=== PATIENT | male | born 1980 | race Caucasian/White ===

== ENCOUNTER 2017-02-01 12:22 | Inpatient (IN) | payer OTHER ==
[2017-02-01 13:12] VITALS: BMI 26.6
--- NOTE | 2017-02-01 14:41 | HP ---
CIWA Score - CIWA Score Nausea/Vomitin-No Nausea/No Vomiting Muscle Tremors: 4-Moderate,w/Arms Extend Anxiety: 4-Mod. Anxious/Guarded Agitation: 4-Moderately Restless Paroxysmal Sweats: 3 Orientation: 0-Oriented Tacttile Disturbances: 0-None Auditory Disturbances: 0-None Visual Disturbances: 0-None Headache: 1-Very Mild CIWA-Ar Total Score: 16 Admission ROS BHS - HPI Chief Complaint: I keep giving parole dirty urine and I need to get cleaned and get my life a chance again. Allergies/Adverse Reactions: Allergies Allergy/AdvReac Type Severity Reaction Status Date / Time No Known Allergies Allergy Verified 02/01/17 14:21 History of Present Illness: pt is a 36yr old male with a history of xanax dependence seeking detox for treatment. pt is also on a mmtp program dose of 60mg verfied however, pt missed two dosed last time dosed was wednesday. Exam Limitations: No Limitations - Ebola screening Have you traveled outside of the country in the last 21 days: No Have you had contact with anyone from an Ebola affected area: No Have you been sick,other than usual withdrawal symptoms: No Do you have a fever: No - Review of Systems Constitutional: Chills, Diaphoresis, Loss of Appetite, Night Sweats, Changes in sleep EENT: reports: Tearing Respiratory: reports: No Symptoms reported Cardiac: reports: No Symptoms Reported GI: reports: Constipated, Poor Appetite, Poor Fluid Intake : reports: No Symptoms Reported Musculoskeletal: reports: Joint Pain, Muscle Pain Integumentary: reports: Flushing, Sweating Neuro: reports: Tingling, Tremors Endocrine: reports: Excessive Sweating, Flushing, Intolerance to Cold, Intolerance to Heat Hematology: reports: No Symptoms Reported Psychiatric: reports: Judgement Intact, Mood/Affect Appropiate, Orientated x3, Agitated, Anxious Other Systems: Reviewed and Negative Patient History - Patient Medical History Hx Anemia: No Hx Asthma: Yes (as a child) Hx Chronic Obstructive Pulmonary Disease (COPD): No Hx Cancer: No Hx Cardiac Disorders: No Hx Congestive Heart Failure: No Hx Hypertension: No Hx Hypercholesterolemia: No Hx Pacemaker: No HX Cerebrovascular Accident: No Hx Seizures: No Hx Dementia: No Hx Diabetes: No Hx Gastrointestinal Disorders: No Hx Liver Disease: No Hx Genitourinary Disorders: No Hx Sexually Transmitted Disorders: No Hx Renal Disease (ESRD): No Hx Thyroid Disease: No Hx Human Immunodeficiency Virus (HIV): No (negative ) Hx Hepatitis C: No (negative) Hx Depression: No Hx Suicide Attempt: No (denies) Hx Bipolar Disorder: No Hx Schizophrenia: No - Patient Surgical History Past Surgical History: No Hx Neurologic Surgery: No Hx Cataract Extraction: No Hx Cardiac Surgery: No Hx Lung Surgery: No Hx Breast Surgery: No Hx Breast Biopsy: No Hx Abdominal Surgery: No Hx Appendectomy: No Hx Cholecystectomy: No Hx Genitourinary Surgery: No Hx Section: No Hx Orthopedic Surgery: No Anesthesia Reaction: No - PPD History Previous Implant?: Yes Documented Results: Negative w/o proof Implanted On Prior [facility] Admission?: No PPD to be Administered?: Yes - Reproductive History Patient is a Female of Child Bearing Age (11 -55 yrs old): No - Smoking Cessation Smoking history: Current every day smoker Have you smoked in the past 12 months: Yes Aproximately how many cigarettes per day: 20 Hx Chewing Tobacco Use: No Initiated information on smoking cessation: Yes 'Breaking Loose' booklet given: 02/01/17 - Substance & Tx. History Hx Alcohol Use: No Hx Substance Use: Yes Substance Use Type: Cocaine, Heroin Hx Substance Use Treatment: No - Substances Abused Crack Route: Smoking Frequency: Daily Amount used: $60 Age of first use: 32 Date of Last Use: 02/01/17 Heroin Route: Inhalation Frequency: Daily Amount used: 5 bags Age of first use: 32 Date of Last Use: 02/01/17 Xanax Route: Oral Frequency: Daily Amount used: 2 mg. Age of first use: 34 Date of Last Use: 01/31/17 Family Disease History - Family Disease History Family History: Denies Admission Physical Exam BHS - Vital Signs Vital Signs: Vital Signs - 24 hr 02/01/17 13:10 Temperature 97.3 F L Pulse Rate 98 H Respiratory 18 Rate Blood Pressure 115/76 - Physical General Appearance: Yes: Appropriately Dressed, Moderate Distress, Tremorous, Irritable, Sweating, Anxious HEENTM: Yes: Normal Voice, Nasal Congestion, Rhinorrhea Respiratory: Yes: Lungs Clear, Normal Breath Sounds, No Respiratory Distress Neck: Yes: No masses,lesions,Nodules Breast: Yes: Within Normal Limits Cardiology: Yes: Regular Rhythm, Regular Rate, S1, S2 Abdominal: Yes: Normal Bowel Sounds, Non Tender, Soft Genitourinary: Yes: Within Normal Limits Back: Yes: Normal Inspection Musculoskeletal: Yes: Back pain, Joint Stiffness, Muscle Pain Extremities: Yes: Normal Capillary Refill, Normal Inspection, Non-Tender, Tremors 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, Fully Oriented, Alert, Normal Response Integumentary: Yes: Normal Color, Diaphoresis Lymphatic: Yes: Within Normal Limits - Diagnostic (1) Sedative, hypnotic or anxiolytic dependence with withdrawal, uncomplicated Current Visit: Yes Status: Chronic (2) Cocaine dependence Current Visit: Yes Status: Chronic Qualifiers: Substance use status: uncomplicated Qualified Code(s): F14.20 - Cocaine dependence, uncomplicated; F14.20 - Cocaine dependence, uncomplicated; F14.20 - Cocaine dependence, uncomplicated (3) Methadone maintenance therapy patient Current Visit: Yes Status: Chronic Comment: pt dose verified with program last dosed on wednesday with 60mg however pt missed two doses, wed and wednesday and pt will start his methadone today with 50mg then increase till his 60mg is reached. (4) Nicotine dependence Current Visit: Yes Status: Chronic Qualifiers: Nicotine product type: cigarettes Substance use status: uncomplicated Qualified Code(s): F17.210 - Nicotine dependence, cigarettes, uncomplicated; F17.210 - Nicotine dependence, cigarettes, uncomplicated Cleared for Admission S - Detox or Rehab [facility] Level of Care: Medically Managed Detox Regimen/Protocol: Valium [facility] Breath Alcohol Content Breath Alcohol Content: 0 Urine Drug Screen - Results Drug Screen Negative: No Urine Drug Screen Results: THC-Marijuana, ADARSH-Cocaine, OPI-Opiates, BZO- Benzodiazepines, MTD-Methadone
[2017-02-01] MEDS ORDERED: NICOTINE POLACRILEX 4 MG GUM BUC PRN (14:55)
[2017-02-01] MEDS ORDERED: hydrOXYzine PAMOATE 50 MG CAPSULE (FP) PO PRN (14:55)
[2017-02-01] MEDS ORDERED: MAGNESIUM HYDROX 2400MG/30ML ORAL SUSPENSION 30 ML CUP PO PRN (14:55)
[2017-02-01] MEDS ORDERED: MENTHOL/PHENOL 1 EACH UD MM PRN (14:55)
[2017-02-01] MEDS ORDERED: LOPERAMIDE HCL 2 MG CAPSULE PO PRN (14:55)
[2017-02-01] MEDS ORDERED: MAGNESIUM CITRATE 300 ML BOTTLE PO PRN (14:55)
[2017-02-01] MEDS ORDERED: MAG HYDROX/AL HYDROX/SIMETH 30 ML UNIT-DOSE CUP PO PRN (14:55)
[2017-02-01] MEDS ORDERED: guaiFENesin/D-METHORPHAN HB 10 ML UNIT-DOSE CUPS PO PRN (14:55)
[2017-02-01] MEDS ORDERED: ACETAMINOPHEN 325 MG TABLET (FP) PO PRN (14:55)
[2017-02-01] MEDS ORDERED: P-EPHED 60MG/TRIPROLIDI 2.5MG TABLET PO PRN (14:55)
[2017-02-01] MEDS ORDERED: IBUPROFEN 400 MG TABLET (FP) PO PRN (14:55)
[2017-02-01] MEDS ORDERED: METHADONE HCL 10 MG TABLET PO ONE (14:56)
[2017-02-01] MEDS ORDERED: diazePAM 5 MG TABLET PO ONE (15:06)
[2017-02-01] MEDS ORDERED: METHADONE 40 MG, METHADONE 10 MG PO ONE (15:20)
[2017-02-01] MEDS ORDERED: METHADONE HCL 10 MG TABLET ONE (17:09)
[2017-02-01] MEDS ORDERED: METHADONE HCL 40 MG DISPERSABLE TABLET ONE (17:10)
[2017-02-01 17:16] LABS: URINE APPEARANCE CLOUDY; URINE BILIRUBIN NEGATIVE (NEGATIVE); URINE BLOOD NEGATIVE (NEGATIVE); URINE COLOR YELLOW; URINE GLUCOSE (UA) NEGATIVE (NEGATIVE); URINE KETONE NEGATIVE (NEGATIVE); URINE NITRITE NEGATIVE (NEGATIVE); URINE PROTEIN NEGATIVE (NEGATIVE)
[2017-02-01 21:23] LABS: URINE LEUK ESTERASE Negative (NEGATIVE)
[2017-02-01] MEDS: THIAMINE HCL 100 MG TABLET (FP) PO SCH (22:22)
[2017-02-01] MEDS: diazePAM 5 MG TABLET PO SCH (22:23)
[2017-02-02] MEDS ORDERED: METHADONE HCL 10 MG TABLET ONE (05:14)
[2017-02-02] MEDS ORDERED: METHADONE HCL 40 MG DISPERSABLE TABLET ONE (05:14)
[2017-02-02] MEDS ORDERED: METHADONE HCL 10 MG TABLET PO SCH (06:00)
[2017-02-02] MEDS: diazePAM 5 MG TABLET PO SCH ×3 (06:28→22:24)
[2017-02-02] MEDS: METHADONE 40 MG, METHADONE 20 MG PO SCH (06:28)
[2017-02-02] MEDS ORDERED: LIDOCAINE 5% TOPICAL PATCH TP ONE (09:47)
[2017-02-02 10:06] LABS: MCH 29.3 pg (25.7-33.7); MCHC 33.5 g/dl (32.0-35.9); MEAN CELL VOLUME 87.3 fl (80-96); PLATELET COUNT 237 K/MM3 (134-434); WHITE BLOOD COUNT 7.4 K/mm3 (4.0-10.0)
[2017-02-02 10:37] LABS: ALBUMIN 3.9 g/dl (3.4-5.0); ALK PHOS 67 U/L (45-117); ANION GAP 11 (8-16); BILIRUBIN,TOTAL 0.5 mg/dL (0.2-1.0); CALCIUM 8.8 mg/dL (8.5-10.1); CO2 27 mmol/L (21-32); GLUCOSE,RANDOM 108 mg/dL (74-106); SGOT/AST 18 U/L (15-37); SGPT/ALT 25 U/L (12-78); TOT PROT 7.1 g/dl (6.4-8.2)
[2017-02-02] MEDS: PRENATAL VITAMINS W/ FOLIC ACID TABLET (FP) PO SCH (11:00)
[2017-02-02] MEDS: CYCLOBENZAPRINE HCL 10 MG TABLET (FP) PO PRN ×2 (11:00→22:24)
[2017-02-02] MEDS: diazePAM 5 MG TABLET PO PRN ×2 (11:00→20:14)
[2017-02-02] MEDS: NICOTINE 21 MG/24 HOURS TOPICAL PATCH TD SCH (11:00)
--- NOTE | 2017-02-02 11:58 | PN ---
[facility] CIWA - CIWA Score Nausea/Vomitin-No Nausea/No Vomiting Muscle Tremors: 3 Anxiety: 3 Agitation: 2 Paroxysmal Sweats: 4-Forehead w/Sweat Beads Orientation: 2-Disoriented Date<2 days Tacttile Disturbances: 2-Mild Itch/Numbness/Burn Auditory Disturbances: 0-None Visual Disturbances: 1-Very Mild Sensitivity Headache: 0-None Present CIWA-Ar Total Score: 17 BHS Progress Note (SOAP) Subjective: Body aches, Sweating, Tremors. Objective: PT. A & O X 2 (DISORIENTED ABOUT DAY / DATE). PT. OBSERVED AMBULATING ON UNIT. NO ACUTE DISTRESS. 02/02/17 11:58 Vital Signs Temperature 97.7 F 02/02/17 07:03 Pulse Rate 60 02/02/17 07:03 Respiratory Rate 18 02/02/17 07:03 Blood Pressure 92/60 02/02/17 07:03 O2 Sat by Pulse Oximetry (%) Laboratory Tests 02/01/17 02/02/17 02/02/17 15:30 05:30 05:30 WBC 7.4 RBC 4.54 Hgb 13.3 Hct 39.6 MCV 87.3 MCH 29.3 MCHC 33.5 RDW 13.0 Plt Count 237 MPV 9.0 Sodium 143 Potassium 3.8 Chloride 105 Carbon Dioxide 27 Anion Gap 11 BUN 16 Creatinine 1.0 Creat Clearance w eGFR > 60 Random Glucose 108 H Calcium 8.8 Total Bilirubin 0.5 AST 18 ALT 25 Alkaline Phosphatase 67 Total Protein 7.1 Albumin 3.9 Urine Color Yellow Urine Appearance Cloudy Urine pH 7.0 Ur Specific [place] 1.020 Urine Protein Negative Urine Glucose (UA) Negative Urine Ketones Negative Urine Blood Negative Urine Nitrite Negative Urine Bilirubin Negative Urine Urobilinogen 2.0 Ur Leukocyte Esterase Negative LABS NOTED. RPR RESULT PENDING. 02/02/17 12:01 Assessment: 02/02/17 12:00 WITHDRAWAL SYMPTOMS. Plan: CONTINUE DETOX. INCREASE DAILY PO FLUID INTAKE. PRN FLEXERIL FOR BODY ACHES / MUSCLE SPASMS. LIDODERM PATCH FOR LOW BACK PAIN.
--- NOTE | 2017-02-02 20:31 | EKG ---
Test Reason : Blood Pressure : / mmHG Vent. Rate : 065 BPM Atrial Rate : 065 BPM P-R Int : 136 ms QRS Dur : 096 ms QT Int : 402 ms P-R-T Axes : 053 071 061 degrees QTc Int : 418 ms NORMAL SINUS RHYTHM RSR' NO PREVIOUS ECGS AVAILABLE REPEAT EKG IF CLINICALLY INDICATED Confirmed by GLADYS BALLESTEROS MD ([id number]) on 02/02/2017 8:31:35 PM Referred By: Confirmed By:GLADYS BALLESTEROS MD
[2017-02-02] MEDS: THIAMINE HCL 100 MG TABLET (FP) PO SCH (22:24)
[2017-02-02] MEDS: diphenhydrAMINE HCL 50 MG CAPSULE PO PRN (22:25)
[2017-02-02] MEDS: LIDOCAINE PATCH REMOVAL MC SCH (22:39)
[2017-02-03] MEDS ORDERED: METHADONE HCL 10 MG TABLET ONE (03:53)
[2017-02-03] MEDS ORDERED: METHADONE HCL 40 MG DISPERSABLE TABLET ONE (03:54)
[2017-02-03] MEDS: CYCLOBENZAPRINE HCL 10 MG TABLET (FP) PO PRN ×2 (05:47→22:21)
[2017-02-03] MEDS: METHADONE 40 MG, METHADONE 20 MG PO SCH (05:47)
[2017-02-03] MEDS: diazePAM 5 MG TABLET PO PRN (05:48)
[2017-02-03] MEDS: diazePAM 5 MG TABLET PO SCH ×2 (10:20→22:21)
[2017-02-03] MEDS: PRENATAL VITAMINS W/ FOLIC ACID TABLET (FP) PO SCH (10:20)
[2017-02-03] MEDS: NICOTINE 21 MG/24 HOURS TOPICAL PATCH TD SCH (10:20)
--- NOTE | 2017-02-03 10:55 | PN ---
[facility] CIWA - CIWA Score Nausea/Vomitin-No Nausea/No Vomiting Muscle Tremors: 4-Moderate,w/Arms Extend Anxiety: 4-Mod. Anxious/Guarded Agitation: 4-Moderately Restless Paroxysmal Sweats: 1-Minimal Palms Moist Orientation: 0-Oriented Tacttile Disturbances: 3-Moderate Itch/Numb/Burn Auditory Disturbances: 0-None Visual Disturbances: 0-None Headache: 0-None Present CIWA-Ar Total Score: 16 BHS Progress Note (SOAP) Subjective: ANXIETY,SWEATS,IRRITABILITY,FATIGUE. Objective: 02/03/17 10:54 Vital Signs Temperature 98.6 F 02/03/17 09:49 Pulse Rate 83 02/03/17 09:49 Respiratory Rate 18 02/03/17 09:49 Blood Pressure 123/73 02/03/17 09:49 O2 Sat by Pulse Oximetry (%) Laboratory Last Values WBC 7.4 K/mm3 (4.0-10.0) 02/02/17 05:30 RBC 4.54 M/mm3 (4.00-5.60) 02/02/17 05:30 Hgb 13.3 GM/dL (11.7-16.9) 02/02/17 05:30 Hct 39.6 % (35.4-49) 02/02/17 05:30 MCV 87.3 fl (80-96) 02/02/17 05:30 MCH 29.3 pg (25.7-33.7) 02/02/17 05:30 MCHC 33.5 g/dl (32.0-35.9) 02/02/17 05:30 RDW 13.0 % (11.9-15.9) 02/02/17 05:30 Plt Count 237 K/MM3 (134-434) 02/02/17 05:30 MPV 9.0 fl (7.5-11.1) 02/02/17 05:30 Sodium 143 mmol/L (136-145) 02/02/17 05:30 Potassium 3.8 mmol/L (3.5-5.1) 02/02/17 05:30 Chloride 105 mmol/L (98-107) 02/02/17 05:30 Carbon Dioxide 27 mmol/L (21-32) 02/02/17 05:30 Anion Gap 11 (8-16) 02/02/17 05:30 BUN 16 mg/dL (7-18) 02/02/17 05:30 Creatinine 1.0 mg/dL (0.7-1.3) 02/02/17 05:30 Creat Clearance w eGFR > 60 (>60) 02/02/17 05:30 Random Glucose 108 mg/dL (74-106) H 02/02/17 05:30 Calcium 8.8 mg/dL (8.5-10.1) 02/02/17 05:30 Total Bilirubin 0.5 mg/dL (0.2-1.0) 02/02/17 05:30 AST 18 U/L (15-37) 02/02/17 05:30 ALT 25 U/L (12-78) 02/02/17 05:30 Alkaline Phosphatase 67 U/L (45-117) 02/02/17 05:30 Total Protein 7.1 g/dl (6.4-8.2) 02/02/17 05:30 Albumin 3.9 g/dl (3.4-5.0) 02/02/17 05:30 Urine Color Yellow 02/01/17 15:30 Urine Appearance Cloudy 02/01/17 15:30 Urine pH 7.0 (5.0-8.0) 02/01/17 15:30 Ur Specific [place] 1.020 (1.005-1.025) 02/01/17 15:30 Urine Protein Negative (NEGATIVE) 02/01/17 15:30 Urine Glucose (UA) Negative (NEGATIVE) 02/01/17 15:30 Urine Ketones Negative (NEGATIVE) 02/01/17 15:30 Urine Blood Negative (NEGATIVE) 02/01/17 15:30 Urine Nitrite Negative (NEGATIVE) 02/01/17 15:30 Urine Bilirubin Negative (NEGATIVE) 02/01/17 15:30 Urine Urobilinogen 2.0 mg/dL (0.2-1.0) 02/01/17 15:30 Ur Leukocyte Esterase Negative (NEGATIVE) 02/01/17 15:30 RPR Titer Nonreactive (NONREACTIVE) 02/02/17 05:30 Assessment: 02/03/17 10:54 WITHDRAWAL SX Plan: CONTINUE DETOX
[2017-02-03] MEDS: THIAMINE HCL 100 MG TABLET (FP) PO SCH (22:21)
[2017-02-03] MEDS: LIDOCAINE PATCH REMOVAL MC SCH (22:31)
[2017-02-04] MEDS ORDERED: METHADONE HCL 40 MG DISPERSABLE TABLET ONE (04:00)
[2017-02-04] MEDS ORDERED: METHADONE HCL 10 MG TABLET ONE (04:00)
[2017-02-04] MEDS: METHADONE 40 MG, METHADONE 20 MG PO SCH (05:54)
[2017-02-04] MEDS: diazePAM 5 MG TABLET PO PRN (05:54)
[2017-02-04] MEDS: NICOTINE 21 MG/24 HOURS TOPICAL PATCH TD SCH (10:13)
[2017-02-04] MEDS: diazePAM 5 MG TABLET PO SCH ×2 (10:13→22:34)
[2017-02-04] MEDS: PRENATAL VITAMINS W/ FOLIC ACID TABLET (FP) PO SCH (10:13)
--- NOTE | 2017-02-04 10:35 | PN ---
BHS Progress Note (SOAP) Subjective: C/O MODERATE TO SEVERE LOWER BACK PAIN AND ANXIETY. Objective: 02/04/17 10:34 Vital Signs Temperature 98.9 F 02/04/17 09:16 Pulse Rate 100 H 02/04/17 09:16 Respiratory Rate 18 02/04/17 09:16 Blood Pressure 133/72 02/04/17 09:16 O2 Sat by Pulse Oximetry (%) Laboratory Last Values WBC 7.4 K/mm3 (4.0-10.0) 02/02/17 05:30 RBC 4.54 M/mm3 (4.00-5.60) 02/02/17 05:30 Hgb 13.3 GM/dL (11.7-16.9) 02/02/17 05:30 Hct 39.6 % (35.4-49) 02/02/17 05:30 MCV 87.3 fl (80-96) 02/02/17 05:30 MCH 29.3 pg (25.7-33.7) 02/02/17 05:30 MCHC 33.5 g/dl (32.0-35.9) 02/02/17 05:30 RDW 13.0 % (11.9-15.9) 02/02/17 05:30 Plt Count 237 K/MM3 (134-434) 02/02/17 05:30 MPV 9.0 fl (7.5-11.1) 02/02/17 05:30 Sodium 143 mmol/L (136-145) 02/02/17 05:30 Potassium 3.8 mmol/L (3.5-5.1) 02/02/17 05:30 Chloride 105 mmol/L (98-107) 02/02/17 05:30 Carbon Dioxide 27 mmol/L (21-32) 02/02/17 05:30 Anion Gap 11 (8-16) 02/02/17 05:30 BUN 16 mg/dL (7-18) 02/02/17 05:30 Creatinine 1.0 mg/dL (0.7-1.3) 02/02/17 05:30 Creat Clearance w eGFR > 60 (>60) 02/02/17 05:30 Random Glucose 108 mg/dL (74-106) H 02/02/17 05:30 Calcium 8.8 mg/dL (8.5-10.1) 02/02/17 05:30 Total Bilirubin 0.5 mg/dL (0.2-1.0) 02/02/17 05:30 AST 18 U/L (15-37) 02/02/17 05:30 ALT 25 U/L (12-78) 02/02/17 05:30 Alkaline Phosphatase 67 U/L (45-117) 02/02/17 05:30 Total Protein 7.1 g/dl (6.4-8.2) 02/02/17 05:30 Albumin 3.9 g/dl (3.4-5.0) 02/02/17 05:30 Urine Color Yellow 02/01/17 15:30 Urine Appearance Cloudy 02/01/17 15:30 Urine pH 7.0 (5.0-8.0) 02/01/17 15:30 Ur Specific [place] 1.020 (1.005-1.025) 02/01/17 15:30 Urine Protein Negative (NEGATIVE) 02/01/17 15:30 Urine Glucose (UA) Negative (NEGATIVE) 02/01/17 15:30 Urine Ketones Negative (NEGATIVE) 02/01/17 15:30 Urine Blood Negative (NEGATIVE) 02/01/17 15:30 Urine Nitrite Negative (NEGATIVE) 02/01/17 15:30 Urine Bilirubin Negative (NEGATIVE) 02/01/17 15:30 Urine Urobilinogen 2.0 mg/dL (0.2-1.0) 02/01/17 15:30 Ur Leukocyte Esterase Negative (NEGATIVE) 02/01/17 15:30 RPR Titer Nonreactive (NONREACTIVE) 02/02/17 05:30 Assessment: 02/04/17 10:34 WITHDRAWAL SX Plan: CONTINUE DETOX FLEXERIL 10 MG PO TID
[2017-02-04] MEDS: CYCLOBENZAPRINE HCL 10 MG TABLET (FP) PO SCH ×2 (14:41→22:34)
[2017-02-04] MEDS: diphenhydrAMINE HCL 50 MG CAPSULE PO PRN (22:35)
[2017-02-04] MEDS: LIDOCAINE PATCH REMOVAL MC SCH (22:35)
[2017-02-04] MEDS: THIAMINE HCL 100 MG TABLET (FP) PO SCH (22:35)
[2017-02-05] MEDS ORDERED: METHADONE HCL 40 MG DISPERSABLE TABLET ONE (03:52)
[2017-02-05] MEDS ORDERED: METHADONE HCL 10 MG TABLET ONE (03:52)
[2017-02-05] MEDS: CYCLOBENZAPRINE HCL 10 MG TABLET (FP) PO SCH (05:34)
[2017-02-05] MEDS: METHADONE 40 MG, METHADONE 20 MG PO SCH (05:34)
[2017-02-05 06:11] VITALS: BP 119/65; PULSE 79; TEMP 96.7
--- NOTE | 2017-02-05 08:54 | DS ---
[facility] Detox Discharge Summary Admission Date: 02/01/17 Discharge Date: 02/05/17 - History Present History: Cocaine Dependence, Sedative Dependence, MMTP Additional Comments: return to MMTP when discharged for f/u care Pertinent Past History: nicotien depenence, insominia, anxiety, depression - Physical Exam Results Vital Signs: Vital Signs Temperature 96.7 F L 02/05/17 06:10 Pulse Rate 79 02/05/17 06:10 Respiratory Rate 18 02/05/17 06:10 Blood Pressure 119/65 02/05/17 06:10 O2 Sat by Pulse Oximetry (%) Pertinent Admission Physical Exam Findings: withdrawal sx - Treatment Hospital Course: Detox Protocol Followed, Detoxed Safely, Responded well, Discharged Condition Good, Rehab Referral Accepted Patient has Accepted a Rehab Referral to: No refused, f/u [facility] for medical care - Medication Discharge Medications: Ambulatory Orders NK [No Known Home Medication] 02/01/17 - Diagnosis (1) Nicotine dependence Current Visit: Yes Status: Acute Qualifiers: Nicotine product type: cigarettes Substance use status: uncomplicated Qualified Code(s): F17.210 - Nicotine dependence, cigarettes, uncomplicated; F17.210 - Nicotine dependence, cigarettes, uncomplicated (2) Sedative, hypnotic or anxiolytic dependence with withdrawal, uncomplicated Current Visit: Yes Status: Acute (3) Methadone maintenance therapy patient Current Visit: Yes Status: Chronic - AMA Did Patient Leave Against Medical Advice: No
[2017-02-05] MEDS ORDERED: diazePAM 5 MG TABLET PO SCH (10:00)
== END 2017-02-05 09:20 | disposition home or self-care (01) | DRG 773 ==
LOC: YASAS 12:22 → Y3N 14:58
PROVIDERS: ADMIT Internal Medicine; ATTEND Internal Medicine
PROC: HZ2ZZZZ Detoxification Services for Substance Abuse Treatment (ICD-10-PCS; principal; 2017-02-01)
DX: F13.230 Sedative, hypnotic or anxiolytic dependence with withdrawal, uncomplicated (principal); F11.20 Opioid dependence, uncomplicated; F14.20 Cocaine dependence, uncomplicated; F17.210 Nicotine dependence, cigarettes, uncomplicated; M54.5 Low back pain; Z59.0 Homelessness
CPT/HCPCS: 36415; 80053; 81003; 85027; 86593; 93005; 93010